=== PATIENT | male | born 1965 | race Caucasian/White ===

== ENCOUNTER 2016-04-15 08:34 | Observation (INO) | payer OTHER ==
[~2016-04-15] VITALS: Ht 180.3 cm; Wt 84.3 kg
[~2016-04-15 08:34] MED LIST: LISINOPRIL20 MG PO; LO-DOSE ASPIRIN81 M2 PO; PERCOCET 5/31 TABLET PO; ZOCOR20 MG PO
[2016-04-15 09:50] LABS: MCH 30.5 PG (29.0-34.0); MCHC 35.2 G/DL (30.0-36.0); MCV 86.6 FL (86-99); MEAN PLAT.VOLUME 9.4 uM^3 (9.0-12.4); PLATELET COUNT 334 K/uL (156-360); RBC DIS.WIDTH-CV 13.9 % (11.8-14.6); RED BLOOD COUNT 5.31 M/uL (4.00-5.50); WHITE BLOOD COUNT 19.8 K/uL (4.1-10.2)
[2016-04-15 10:04] LABS: CHLORIDE 102 mEq/L (99-109); POTASSIUM 3.5 mEq/L (3.7-5.4); SODIUM 135 mEq/L (136-147)
[2016-04-15 10:07] LABS: GLUCOSE 109 mg/dL (70-99)
[2016-04-15 10:08] LABS: ANION GAP 12 MEQ/L (2-14)
[2016-04-15 10:09] LABS: TOTAL BILIRUBIN 0.9 mg/dL (0.0-1.0)
[2016-04-15 10:10] LABS: ALKALINE PHOSPHATASE 83 IU/L (3-129); GFR ESTIMATE (CALCULATED) > 59 mL/min/
[2016-04-15 10:11] LABS: UREA NITROGEN (BUN) 11 mg/dL (9-23)
[2016-04-15 11:14] LABS: ADD MIUA? NO; BILIRUBIN NEGATIVE; BLOOD NEGATIVE; COLOR YELLOW ((YELLOW)); GLUCOSE (STRIP) NEGATIVE; KETONES NEGATIVE; LEUKOCYTES NEGATIVE; NITRITE NEGATIVE; PROTEIN (STRIP) NEGATIVE; SPECIFIC GRAVITY 1.018 (1.000-1.030); UCUL ADDED? NO; UROBILINOGEN 0.2 MG/DL (0.2-1.0)
[2016-04-15] MEDS ORDERED: ZESTORETIC 20-1 EAC1 PO (11:22)
[2016-04-15 12:47] VITALS: BP 134/94
[2016-04-15 15:54] VITALS: BP 130/76
[2016-04-15 19:02] LABS: C DIFF TOXIN NEGATIVE (NEGATIVE)
[2016-04-15 19:03] LABS: PROBE CHECK PASS; SPECIMEN PROCESSING CONTROL PASS
[2016-04-15 19:58] VITALS: BP 137/86
[2016-04-16] VITALS (7 sets, daily range): BP systolic 100–132; BP diastolic 56–85
[2016-04-16 06:26] LABS: HEMATOCRIT 43.3 % (38.0-50.0); MCH 30.8 PG (29.0-34.0); MCHC 33.3 G/DL (30.0-36.0); MEAN PLAT.VOLUME 9.9 uM^3 (9.0-12.4); PLATELET COUNT 269 K/uL (156-360); RBC DIS.WIDTH-CV 14.4 % (11.8-14.6); RED BLOOD COUNT 4.68 M/uL (4.00-5.50); WHITE BLOOD COUNT 16.9 K/uL (4.1-10.2)
[2016-04-16 06:28] LABS: MCV 92.5 FL (86-99)
[2016-04-16 06:41] LABS: ANION GAP 9 MEQ/L (2-14); CHLORIDE 101 MEQ/L (99-109); GFR ESTIMATE (CALCULATED) > 59 mL/min/; GLUCOSE 94 mg/dL (70-99); POTASSIUM 3.6 MEQ/L (3.7-5.4); SAMPLE HEMOLYSIS CHECK 0; SAMPLE ICTERIC CHECK 0; SAMPLE LIPEMIA CHECK 0; SODIUM 138 MEQ/L (136-147); UREA NITROGEN (BUN) 9 mg/dL (9-23)
[2016-04-16] MEDS ORDERED: ASPIRIN EC325 MG PO (14:57)
[2016-04-16] MEDS ORDERED: LEVOFLOXACIN750 MG PO (14:57)
[2016-04-16] MEDS ORDERED: METRONIDAZOLE500 MG PO (14:57)
[2016-04-17 04:14] VITALS: BP 90/53
[2016-04-17 06:09] LABS: HEMATOCRIT 43.2 % (38.0-50.0); MCH 29.6 PG (29.0-34.0); MCHC 32.2 G/DL (30.0-36.0); MCV 92.1 FL (86-99); MEAN PLAT.VOLUME 9.5 uM^3 (9.0-12.4); PLATELET COUNT 263 K/uL (156-360); RBC DIS.WIDTH-CV 14.4 % (11.8-14.6); RBC DIS.WIDTH-SD 48.5 % (39-53); RED BLOOD COUNT 4.69 M/uL (4.00-5.50); WHITE BLOOD COUNT 13.4 K/uL (4.1-10.2)
[2016-04-17 08:00] VITALS: BP 100/56
== END 2016-04-17 11:14 | disposition home or self-care (01) ==
LOC: EME 08:34 → 5WEST 10:59 → EDOF 10:59 → 5WEST 12:43
PROVIDERS: Internal Medicine; Internal Medicine Gastroenterology; Physician Assistant
DX: K50.10 Crohn's disease of large intestine without complications (principal); K55.9 Vascular disorder of intestine, unspecified; K57.30 Diverticulosis of large intestine without perforation or abscess without bleeding; K62.1 Rectal polyp; D17.5 Benign lipomatous neoplasm of intra-abdominal organs; K64.8 Other hemorrhoids; K92.1 Melena; R10.33 Periumbilical pain; I10 Essential (primary) hypertension; E78.5 Hyperlipidemia, unspecified; D72.829 Elevated white blood cell count, unspecified; Z79.82 Long term (current) use of aspirin; F17.210 Nicotine dependence, cigarettes, uncomplicated; Z87.898 Personal history of other specified conditions
CPT/HCPCS: 74177; 80048; 80053; 81003; 85027; 87493; 88305; 99281; 99284; B4087; G0378; J1956; J2250; J3010; J7120; S0030

== ENCOUNTER → 2016-12-20 | Outpatient (CLI) | payer OTHER ==
[~2016-12-20] MED LIST changes: +ASPIRIN EC325 MG PO; +ASPIRIN81 M2 PO; +LEVOFLOXACIN750 MG PO; +METRONIDAZOLE500 MG PO; +ZESTORETIC 20-1 EAC1 PO
== END | disposition home or self-care (01) ==
LOC: CDC
DX: K40.91 Unilateral inguinal hernia, without obstruction or gangrene, recurrent (principal); R94.31 Abnormal electrocardiogram [ECG] [EKG]
CPT/HCPCS: 93000

== ENCOUNTER 2016-12-27 09:07 | Day surgery (SDC) | payer OTHER ==
[~2016-12-27] VITALS: Ht 180.3 cm; Wt 85.0 kg
[2016-12-27 09:54] VITALS: BP 123/80
[2016-12-27] MEDS ORDERED: PERCOCET 5/31 TABLET PO (14:57)
[2016-12-27 16:30] VITALS: BP 135/81
[2016-12-27 17:25] VITALS: BP 120/80
[2016-12-27 18:00] VITALS: BP 124/76
== END 2016-12-27 18:07 | disposition home or self-care (01) ==
LOC: SDC 09:07
PROC: 0WUF4JZ Supplement Abdominal Wall with Synthetic Substitute, Percutaneous Endoscopic Approach (ICD-10-PCS; principal; 2016-12-27)
PROC: 0YU64JZ Supplement Left Inguinal Region with Synthetic Substitute, Percutaneous Endoscopic Approach (ICD-10-PCS; principal; 2016-12-27)
DX: K40.91 Unilateral inguinal hernia, without obstruction or gangrene, recurrent (principal); K42.0 Umbilical hernia with obstruction, without gangrene; I10 Essential (primary) hypertension; F17.200 Nicotine dependence, unspecified, uncomplicated; Z79.82 Long term (current) use of aspirin
CPT/HCPCS: C1727; C1781; G0480; J0131; J0330; J0690; J1100; J1170; J2250; J2405; J2710; J3010